=== PATIENT | male | born 1985 | race Two or more races ===

== ENCOUNTER 2021-10-25 21:38 | Emergency (ER) | payer OTHER, MEDICAID ==
[~2021-10-25] VITALS: Ht 167.6 cm; Wt 83.9 kg
[2021-10-26 01:39] VITALS: BP 126/98
== END 2021-10-26 01:19 | disposition home or self-care (01) ==
LOC: EDBD 21:38 → ER 21:45
DX: T40.2X1A Poisoning by other opioids, accidental (unintentional), initial encounter (principal); F12.10 Cannabis abuse, uncomplicated; Y92.89 Other specified places as the place of occurrence of the external cause
CPT/HCPCS: 93005